=== PATIENT | female | born 1940 | race Caucasian/White ===

== ENCOUNTER 2019-04-07 12:48 | Inpatient (IN) | payer MEDICARE ==
--- NOTE | 2019-04-07 13:43 | CR ---
[id number] RAD/RAD Chest PA or AP 1V EXAM: RAD Chest PA or AP 1V INDICATION: CONFUSION. COMPARISON: None. DISCUSSION: Cardiomediastinal silhouette is normal in size and contour. COPD. No infiltrate, effusion, pneumothorax, or edema. IMPRESSION: Negative examination of the chest. Shaq Flores MD 04/07/19 8913 Thank you for allowing us to participate in the care of your patient.
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
[2019-04-07 14:13] LABS: CHLORIDE,CL 106 mmol/L (98-107); SODIUM,NA 148 mmol/L (136-145)
[2019-04-07 14:16] LABS: ANION GAP 16.5 mmol/L (10-20)
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
[2019-04-07] MEDS ORDERED: Lactated Ringers 1,000 ML IV SCH (14:45)
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
[2019-04-07] MEDS ORDERED: Albuterol 0.083% 2.5 MG/3 ML Neb Soln INH PRN (20:00)
[2019-04-07] MEDS: Lactated Ringers 1,000 ML IV SCH (23:43)
[2019-04-08] MEDS: Lactated Ringers 1,000 ML IV SCH ×3 (07:07→16:36)
[2019-04-08 08:28] LABS: ANION GAP 12.4 mmol/L (10-20)
[2019-04-08] MEDS ORDERED: Magnesium Sulfate/Water 2 GM in Premix Bag 1 BAG IV ONE (11:05)
[2019-04-08] MEDS ORDERED: Furosemide 20 MG/2 ML VIAL IV ONE (11:05)
[2019-04-08] MEDS ORDERED: Potassium Chloride Riders 20 MEQ in Premix Bag 1 BAG IV ONE (11:05)
--- NOTE | 2019-04-08 11:19 | PCM.PN ---
- General Info Date of Service: 04/08/19 Admission Dx/Problem (Free Text): Admission Diagnosis/Problem Admission Diagnosis/Problem Acute kidney injury Severe Dehydration Hypercalcemia Subjective Update: Patient lethargic but arousable. Patient states she is not having any pain. She denies any chest pain or SOB. Patient offers no specific concerns. She states she is very tired and just wants to sleep. Functional Status: Reports: Pain Controlled, Ambulating, Urinating. Denies: Tolerating Diet, New Symptoms Pain Score: 0 - Review of Systems General: Reports: Weakness. Denies: Fever, Chills Pulmonary: Denies: Shortness of Breath, Cough Cardiovascular: Denies: Chest Pain, Palpitations Gastrointestinal: Denies: Abdominal Pain, Nausea, Vomiting Skin: Reports: No Symptoms Neurological: Reports: Confusion - Patient Data Vitals - Most Recent: Last Vital Signs Temp 98.3 F 04/08/19 09:49 Pulse 71 04/08/19 09:49 Resp 16 04/08/19 09:49 BP 162/90 H 04/08/19 09:49 Pulse Ox 96 04/08/19 09:49 Weight - Most Recent: 117 lb I&O - Last 24 Hours: Intake & Output 04/07/19 04/08/19 04/08/19 22:59 06:59 14:59 Intake Total 80 1794 Output Total 650 Balance 80 1144 Lab Results Last 24 Hours: Laboratory Results - last 24 hr 04/07/19 04/07/19 04/07/19 Range/Units 13:31 13:31 13:31 WBC 6.5 (4.0-10.0) x10^3/uL RBC 3.88 L (4.00-5.50) x10^6/uL Hgb 12.5 (12.0-16.0) g/dL Hct 36.6 (33.0-47.0) % MCV 94.3 H (78.0-93.0) fL MCH 32.2 H (26.0-32.0) pg MCHC 34.2 (32.0-36.0) g/dL RDW Coeff of Darius 15.3 H (10.0-15.0) % Plt Count 130 (130-400) x10^3/uL Neut % (Auto) 75.8 (50.0-80.0) % Lymph % (Auto) 10.3 L (25.0-50.0) % [place] % (Auto) 13.5 H (2.0-11.0) % Eos % (Auto) 0.2 (0.0-4.0) % Baso % (Auto) 0.2 (0.2-1.2) % PT 13.4 H (10.0-12.8) SEC INR 1.2 L (2.0-3.5) Sodium 148 H (136-145) mmol/L Potassium 3.5 (3.5-5.1) mmol/L Chloride 106 (98-107) mmol/L Carbon Dioxide 29 (21-32) mmol/L Anion Gap 16.5 (10-20) mmol/L BUN 58 H D (7-18) mg/dL Creatinine 3.1 H* D (0.55-1.02) mg/dL Est Cr Clr Drug Dosing TNP Estimated GFR (MDRD) 14 Glucose 118 H (74-106) mg/dL Lactic Acid (0.4-2.0) mmol/L Calcium 16.2 H* D (8.5-10.1) mg/dL Corrected Calcium 16.92 H* D (8.5-10.1) mg/dL Magnesium 1.5 L (1.8-2.4) mg/dL Total Bilirubin 1.1 H (0.2-1.0) mg/dL AST 37 (15-37) U/L ALT 19 (14-59) U/L Alkaline Phosphatase 58 (46-116) U/L Troponin I (<=0.056) ng/mL C-Reactive Protein 4.0 H (<=0.9) mg/dL Total Protein 7.3 (6.4-8.2) g/dL Albumin 3.1 L (3.4-5.0) g/dL Globulin 4.2 Albumin/Globulin Ratio 0.74 TSH, Ultra Sensitive 2.292 (0.358-3.74) uIU/mL Urine Color (YELLOW) Urine Appearance (CLEAR) Urine pH (5.0-8.0) Ur Specific [place] Urine Protein (NEGATIVE) mg/dL Urine Glucose (UA) (NEGATIVE) mg/dL Urine Ketones (NEGATIVE) mg/dL Urine Occult Blood (NEGATIVE) Urine Nitrite (NEGATIVE) Urine Bilirubin (NEGATIVE) Urine Urobilinogen (0.2) EU/dL Ur Leukocyte Esterase (NEGATIVE) Urine RBC (NOT SEEN) /HPF Urine WBC (NOT SEEN) /HPF Ur Squamous Epith Cells (NEGATIVE) /HPF Ur Transition Epith Cell (NEGATIVE) /HPF Ur Renal Epithelial Cell (NEGATIVE) /HPF Urine Bacteria (NEGATIVE) /HPF Hyaline Casts (NEGATIVE) /HPF Urine Mucus (NEGATIVE) /LPF 04/07/19 04/07/19 04/07/19 Range/Units 13:31 13:31 14:20 WBC (4.0-10.0) x10^3/uL RBC (4.00-5.50) x10^6/uL Hgb (12.0-16.0) g/dL Hct (33.0-47.0) % MCV (78.0-93.0) fL MCH (26.0-32.0) pg MCHC (32.0-36.0) g/dL RDW Coeff of Darius (10.0-15.0) % Plt Count (130-400) x10^3/uL Neut % (Auto) (50.0-80.0) % Lymph % (Auto) (25.0-50.0) % [place] % (Auto) (2.0-11.0) % Eos % (Auto) (0.0-4.0) % Baso % (Auto) (0.2-1.2) % PT (10.0-12.8) SEC INR (2.0-3.5) Sodium (136-145) mmol/L Potassium (3.5-5.1) mmol/L Chloride (98-107) mmol/L Carbon Dioxide (21-32) mmol/L Anion Gap (10-20) mmol/L BUN (7-18) mg/dL Creatinine (0.55-1.02) mg/dL Est Cr Clr Drug Dosing Estimated GFR (MDRD) Glucose (74-106) mg/dL Lactic Acid 2.0 (0.4-2.0) mmol/L Calcium (8.5-10.1) mg/dL Corrected Calcium (8.5-10.1) mg/dL Magnesium (1.8-2.4) mg/dL Total Bilirubin (0.2-1.0) mg/dL AST (15-37) U/L ALT (14-59) U/L Alkaline Phosphatase (46-116) U/L Troponin I 0.076 H* (<=0.056) ng/mL C-Reactive Protein (<=0.9) mg/dL Total Protein (6.4-8.2) g/dL Albumin (3.4-5.0) g/dL Globulin Albumin/Globulin Ratio TSH, Ultra Sensitive (0.358-3.74) uIU/mL Urine Color Yellow (YELLOW) Urine Appearance Slightly cloudy H (CLEAR) Urine pH 5.5 (5.0-8.0) Ur Specific [place] 1.025 Urine Protein Negative (NEGATIVE) mg/dL Urine Glucose (UA) Negative (NEGATIVE) mg/dL Urine Ketones Trace H (NEGATIVE) mg/dL Urine Occult Blood Trace-intact H (NEGATIVE) Urine Nitrite Negative (NEGATIVE) Urine Bilirubin Small H (NEGATIVE) Urine Urobilinogen 0.2 (0.2) EU/dL Ur Leukocyte Esterase Small H (NEGATIVE) Urine RBC 0-5 (NOT SEEN) /HPF Urine WBC 10-20 H (NOT SEEN) /HPF Ur Squamous Epith Cells Moderate H (NEGATIVE) /HPF Ur Transition Epith Cell Rare H (NEGATIVE) /HPF Ur Renal Epithelial Cell Few H (NEGATIVE) /HPF Urine Bacteria Few H (NEGATIVE) /HPF Hyaline Casts Few H (NEGATIVE) /HPF Urine Mucus Few H (NEGATIVE) /LPF 04/07/19 04/08/19 04/08/19 Range/Units 19:35 07:42 07:42 WBC 6.3 (4.0-10.0) x10^3/uL RBC 3.24 L (4.00-5.50) x10^6/uL Hgb 10.5 L D (12.0-16.0) g/dL Hct 30.8 L (33.0-47.0) % MCV 95.1 H (78.0-93.0) fL MCH 32.4 H (26.0-32.0) pg MCHC 34.1 (32.0-36.0) g/dL RDW Coeff of Darius 15.4 H (10.0-15.0) % Plt Count 104 L (130-400) x10^3/uL Neut % (Auto) 68.8 (50.0-80.0) % Lymph % (Auto) 12.9 L (25.0-50.0) % [place] % (Auto) 15.6 H (2.0-11.0) % Eos % (Auto) 2.4 (0.0-4.0) % Baso % (Auto) 0.3 (0.2-1.2) % PT (10.0-12.8) SEC INR (2.0-3.5) Sodium 146 H (136-145) mmol/L Potassium 3.4 L (3.5-5.1) mmol/L Chloride 107 (98-107) mmol/L Carbon Dioxide 30 (21-32) mmol/L Anion Gap 12.4 (10-20) mmol/L BUN 53 H (7-18) mg/dL Creatinine 2.9 H (0.55-1.02) mg/dL Est Cr Clr Drug Dosing 10.93 Estimated GFR (MDRD) 16 Glucose 121 H (74-106) mg/dL Lactic Acid (0.4-2.0) mmol/L Calcium 15.2 H* (8.5-10.1) mg/dL Corrected Calcium (8.5-10.1) mg/dL Magnesium (1.8-2.4) mg/dL Total Bilirubin (0.2-1.0) mg/dL AST (15-37) U/L ALT (14-59) U/L Alkaline Phosphatase (46-116) U/L Troponin I 0.080 H* (<=0.056) ng/mL C-Reactive Protein (<=0.9) mg/dL Total Protein (6.4-8.2) g/dL Albumin (3.4-5.0) g/dL Globulin Albumin/Globulin Ratio TSH, Ultra Sensitive (0.358-3.74) uIU/mL Urine Color (YELLOW) Urine Appearance (CLEAR) Urine pH (5.0-8.0) Ur Specific [place] Urine Protein (NEGATIVE) mg/dL Urine Glucose (UA) (NEGATIVE) mg/dL Urine Ketones (NEGATIVE) mg/dL Urine Occult Blood (NEGATIVE) Urine Nitrite (NEGATIVE) Urine Bilirubin (NEGATIVE) Urine Urobilinogen (0.2) EU/dL Ur Leukocyte Esterase (NEGATIVE) Urine RBC (NOT SEEN) /HPF Urine WBC (NOT SEEN) /HPF Ur Squamous Epith Cells (NEGATIVE) /HPF Ur Transition Epith Cell (NEGATIVE) /HPF Ur Renal Epithelial Cell (NEGATIVE) /HPF Urine Bacteria (NEGATIVE) /HPF Hyaline Casts (NEGATIVE) /HPF Urine Mucus (NEGATIVE) /LPF Med Orders - Current: Current Medications Albuterol (Proventil Neb Soln) 2.5 mg INH Q4H PRN PRN Reason: Shortness of Breath Lactated Ringer's (Ringers, Lactated) 1,000 mls @ 125 mls/hr IV ASDIRECTED [facility] Last Admin: 04/08/19 08:43 Dose: 125 mls/hr Magnesium Sulfate 2 gm/ Premix 50 mls @ 25 mls/hr IV ONETIME ONE Stop: 04/08/19 13:04 Potassium Chloride 20 meq/ (Premix) 50 mls @ 50 mls/hr IV ONETIME ONE Stop: 04/08/19 12:04 Loperamide HCl (Imodium) 2 mg PO DAILY PRN PRN Reason: Diarrhea Sodium Chloride (Saline Flush) 10 ml FLUSH ASDIRECTED PRN PRN Reason: Keep Vein Open Discontinued Medications Furosemide (Lasix) 20 mg IV ONETIME ONE Stop: 04/08/19 11:06 Lactated Ringer's (Ringers, Lactated) 1,000 mls @ 150 mls/hr IV ASDIRECTED [facility] Last Admin: 04/07/19 14:52 Dose: 150 mls/hr - Exam Quality Assessment: DVT Prophylaxis. No: Skin Breakdown General: Alert, Cooperative, No Acute Distress. No: Oriented Lungs: Clear to Auscultation, Normal Respiratory Effort Cardiovascular: Regular Rate, Regular Rhythm GI/Abdominal Exam: Normal Bowel Sounds, Soft, Non-Tender Peripheral Pulses: 2+: Radial (L), Radial (R) Skin: Warm, Dry, Intact Neurological: No New Focal Deficit Sepsis Event Note - Evaluation Sepsis Screening Result: No Definite Risk - Focused Exam Vital Signs: Vital Signs Temp Pulse Resp BP BP Pulse Ox 04/08/19 09:49 98.3 F 71 16 162/90 H 96 04/08/19 06:00 99.1 F 75 14 166/79 H 94 L 04/08/19 02:00 98.3 F 78 16 182/87 H 93 L Date Exam was Performed: 04/08/19 Time Exam was Performed: 11:09 - Problem List Review Problem List Initiated/Reviewed/Updated: Yes - My Orders Last 24 Hours: My Active Orders 04/08/19 11:05 Magnesium Sulfate/Water [Magnesium Sulfate in Water Premix] 2 gm Premix Bag 1 bag IV ONETIME Potassium Chloride Riders [KCL 20 MEQ in Water 50 ML] 20 meq Premix Bag 1 bag IV ONETIME 04/09/19 05:11 BASIC METABOLIC PANEL,BMP [CHEM] Routine CALCIUM, IONIZED, SERUM [REF] Routine CBC WITH AUTO DIFF [HEME] Routine MAGNESIUM [CHEM] Routine PHOSPHORUS [CHEM] Routine PTH, INTACT [REF] Routine - Assessment Assessment:: 1. Dehydration 2. SINAN 2/2 to above 3. Hypercalcemia 2/2 to #1 4. Elevated Troponin 5. H/O recent dental surgery 6. HTN 7. SOB 8. Depressed Mood - Plan Plan:: 79 yo female admitted with severe SNIAN #1 Dehydration- improving, Creat now at 2.9, cont with IVF #2 SINAN, improving #3 Hypercalcemia, continue with IVF; will try 20 mg of IV Lasix today and see if this helps; replace K and Mag today as well - LR @125 cc/hr. - Will monitor labs daily. #4 Elevated Troponin- 2/2 SINAN most likely - No cardiac symptoms. - No further intervention/transfer unless significantly changed from initial. Unclear whether she would even be on board with this. #5 H/o Dental surgery - Everything is healing well. - Will likely need to move dental appointment. #6 Hypertension - BP continues to be elevated, keep kidneys profused; ok for higher blood pressure at this point until Creat improves - Will hold home anti-hypertensive in light of SINAN. - If she does need something to control her BP, amlodipine would be a good option. #7 Shortness of breath - No acute symptoms. - Continue albuterol PRN. #8 Depressed mood - Await social work eval to determine further interventions Continue acute cares for now. Will see how the patient does with IVF, Lasix, and electrolyte replacement. Continue SCD's for DVT prophylaxis. DNR/DNI. Dr. Roxane Madsen will see patient tomorrow.
[2019-04-08] MEDS: Sodium Chloride 0.9% 10 ML Syringe FLUSH PRN (12:06)
[2019-04-09] MEDS: Lactated Ringers 1,000 ML IV SCH ×3 (00:35→16:29)
[2019-04-09 07:14] LABS: ANION GAP 10.6 mmol/L (10-20)
--- NOTE | 2019-04-09 08:38 | PCM.PN ---
- General Info Date of Service: 04/09/19 Subjective Update: 79 yo female hospital day #3 admitted with SINAN secondary to severe dehydration. She is alert this morning and denies concerns. She is wondering when she is going to get her stitches removed from in her mouth. She denies any pain, swelling, or other trouble but recalls that she was supposed to be having an appointment today to get these removed. No fever. She has been eating and drinking well since admission. She is voiding without issue but has not had any bowel movements since admission. - Review of Systems General: Reports: No Symptoms HEENT: Reports: No Symptoms Pulmonary: Reports: No Symptoms Cardiovascular: Reports: No Symptoms Gastrointestinal: Reports: No Symptoms Genitourinary: Reports: No Symptoms Musculoskeletal: Reports: No Symptoms Skin: Reports: No Symptoms Neurological: Reports: No Symptoms - Patient Data Vitals - Most Recent: Last Vital Signs Temp 36.3 C 04/09/19 04:34 Pulse 63 04/09/19 04:34 Resp 17 04/09/19 04:34 BP 181/87 H 04/09/19 04:34 Pulse Ox 95 04/09/19 04:34 Weight - Most Recent: 53.07 kg I&O - Last 24 Hours: Intake & Output 04/08/19 04/09/19 04/09/19 22:59 06:59 14:59 Intake Total 1720 150 Output Total 500 1200 Balance 1220 -1050 Lab Results Last 24 Hours: Laboratory Results - last 24 hr 04/09/19 04/09/19 Range/Units 06:44 06:44 WBC 6.1 (4.0-10.0) x10^3/uL RBC 3.16 L (4.00-5.50) x10^6/uL Hgb 10.3 L (12.0-16.0) g/dL Hct 30.1 L (33.0-47.0) % MCV 95.3 H (78.0-93.0) fL MCH 32.6 H (26.0-32.0) pg MCHC 34.2 (32.0-36.0) g/dL RDW Coeff of Darius 15.3 H (10.0-15.0) % Plt Count 95 L (130-400) x10^3/uL Neut % (Auto) 68.4 (50.0-80.0) % Lymph % (Auto) 14.2 L (25.0-50.0) % [place] % (Auto) 13.6 H (2.0-11.0) % Eos % (Auto) 3.3 (0.0-4.0) % Baso % (Auto) 0.5 (0.2-1.2) % Sodium 145 (136-145) mmol/L Potassium 3.6 (3.5-5.1) mmol/L Chloride 106 (98-107) mmol/L Carbon Dioxide 32 (21-32) mmol/L Anion Gap 10.6 (10-20) mmol/L BUN 50 H (7-18) mg/dL Creatinine 2.7 H (0.55-1.02) mg/dL Est Cr Clr Drug Dosing 11.74 mL/min Estimated GFR (MDRD) 17 Glucose 106 (74-106) mg/dL Calcium 14.6 H* (8.5-10.1) mg/dL Phosphorus 3.7 (2.6-4.7) mg/dL Magnesium 1.5 L (1.8-2.4) mg/dL Rashid Results Last 24 Hours: Microbiology 04/07/19 13:35 Aerobic Blood Culture - Preliminary Blood - Venous - Lab Draw NO GROWTH AFTER 1 DAY Anaerobic Blood Culture - Preliminary NO GROWTH AFTER 1 DAY 04/07/19 13:31 Aerobic Blood Culture - Preliminary Blood - Venous NO GROWTH AFTER 1 DAY Anaerobic Blood Culture - Preliminary NO GROWTH AFTER 1 DAY Med Orders - Current: Current Medications Albuterol (Proventil Neb Soln) 2.5 mg INH Q4H PRN PRN Reason: Shortness of Breath Amlodipine Besylate (Norvasc) 2.5 mg PO DAILY [facility] Lactated Ringer's (Ringers, Lactated) 1,000 mls @ 125 mls/hr IV ASDIRECTED [facility] Last Admin: 04/09/19 00:35 Dose: 125 mls/hr Loperamide HCl (Imodium) 2 mg PO DAILY PRN PRN Reason: Diarrhea Sodium Chloride (Saline Flush) 10 ml FLUSH ASDIRECTED PRN PRN Reason: Keep Vein Open Last Admin: 04/08/19 12:06 Dose: 10 ml Discontinued Medications Furosemide (Lasix) 20 mg IV ONETIME ONE Stop: 04/08/19 11:06 Last Admin: 04/08/19 12:04 Dose: 20 mg Lactated Ringer's (Ringers, Lactated) 1,000 mls @ 150 mls/hr IV ASDIRECTED [facility] Last Admin: 04/07/19 14:52 Dose: 150 mls/hr Magnesium Sulfate 2 gm/ Premix 50 mls @ 25 mls/hr IV ONETIME ONE Stop: 04/08/19 13:04 Last Admin: 04/08/19 12:33 Dose: 25 mls/hr Potassium Chloride 20 meq/ (Premix) 50 mls @ 25 mls/hr IV ONETIME ONE Stop: 04/08/19 13:04 Last Admin: 04/08/19 12:07 Dose: 25 mls/hr - Exam General: Alert, Cooperative, No Acute Distress HEENT: Mucous Membr. Moist/[place] Neck: Supple, Trachea Midline, No Thyromegaly. No: Lymphadenopathy Lungs: Clear to Auscultation, Normal Respiratory Effort Cardiovascular: Regular Rate, Regular Rhythm, No Murmurs GI/Abdominal Exam: Normal Bowel Sounds, Soft, Non-Tender, No Organomegaly, No Distention, No Mass Extremities: Non-Tender, No Pedal Edema, Normal Capillary Refill Peripheral Pulses: 2+: Radial (L), Radial (R) Skin: Warm, Dry, Intact Neurological: No New Focal Deficit Sepsis Event Note - Evaluation Sepsis Screening Result: No Definite Risk - Focused Exam Vital Signs: Vital Signs Temp Pulse Resp BP Pulse Ox 04/09/19 04:34 36.3 C 63 17 181/87 H 95 04/09/19 02:00 36.2 C 67 16 180/91 H 95 04/08/19 21:58 37.0 C 71 17 151/83 H 97 Date Exam was Performed: 04/09/19 Time Exam was Performed: 08:38 - Problem List & Annotations (1) Dehydration SNOMED Code(s): 87760012 Code(s): E86.0 - DEHYDRATION Status: Acute Current Visit: Yes (2) SINAN (acute kidney injury) SNOMED Code(s): 47476059, 89123632 Code(s): N17.9 - ACUTE KIDNEY FAILURE, UNSPECIFIED Status: Acute Current Visit: Yes (3) Hypercalcemia SNOMED Code(s): 41031347 Code(s): E83.52 - HYPERCALCEMIA Status: Acute Current Visit: Yes (4) Elevated troponin SNOMED Code(s): 840631668, 794009621, 034497633 Code(s): R79.89 - OTHER SPECIFIED ABNORMAL FINDINGS OF BLOOD CHEMISTRY Status: Acute Current Visit: Yes (5) History of dental surgery SNOMED Code(s): 493251655 Code(s): Z92.89 - PERSONAL HISTORY OF OTHER MEDICAL TREATMENT Status: Acute Current Visit: Yes (6) Hypertension SNOMED Code(s): 18450726 Code(s): I10 - ESSENTIAL (PRIMARY) HYPERTENSION Status: Chronic Current Visit: Yes Qualifiers: Hypertension type: essential hypertension Qualified Code(s): I10 - Essential (primary) hypertension (7) Shortness of breath SNOMED Code(s): 049876389 Code(s): R06.02 - SHORTNESS OF BREATH Status: Chronic Current Visit: Yes (8) Depression SNOMED Code(s): 50217507 Code(s): F32.9 - MAJOR DEPRESSIVE DISORDER, SINGLE EPISODE, UNSPECIFIED Status: Acute Current Visit: Yes Qualifiers: Depression Type: other depression Qualified Code(s): F32.89 - Other specified depressive episodes - Problem List Review Problem List Initiated/Reviewed/Updated: Yes - My Orders Last 24 Hours: My Active Orders 04/09/19 08:36 UA W/MICROSCOPIC [URIN] Routine 04/09/19 08:45 amLODIPine [Norvasc] 2.5 mg PO DAILY 04/10/19 05:11 BASIC METABOLIC PANEL,BMP [CHEM] Routine CBC WITH AUTO DIFF [HEME] Routine - Assessment Assessment:: 79 yo female hospital day #3 admitted with SINAN secondary to significant dehydration. Labs are steadily improving. Much more alert today and asking appropriate questions. BP's have been consistently elevated. - Plan Plan:: 79 yo female admitted with severe SINAN #1 Dehydration #2 SINAN #3 Hypercalcemia #4 Hypokalemia, resolved #5 Hypomagnesia - [employer] is steadily improving, albeit slowly. Calcium also improving. - She is tolerating the fluid load without any issues. Therefore, continue LR @ 125 cc/hr. - K normal today; therefore, no further replacement. Mag is unchanged compared to yesterday despite IV administration; will hold off on further repletion today and recheck tomorrow. - MM would be on the differential for her hypercalcemia and SINAN; however, will not test for this as patient would not want treatment and creatinine and calcium are improving with IV fluids. - Will monitor labs daily. #6 Elevated Troponin - No cardiac symptoms. - Repeat troponin was essentially stable. - This is presumed to be secondary to her renal issues. #7 H/o Dental surgery - Everything is healing well. - Will have daughter check on when the timing needs to be for the dental appointment. If it can wait until next week, that would be preferable as it is likely the patient will not be prepared for dismissal home before Saturday. #8 Hypertension - BP has been persistently elevated. - Therefore, will go ahead and add amlodipine today at a low dose of 2.5 mg. #9 Shortness of breath - No acute symptoms. - Continue albuterol PRN. #10 Depressed mood - Await social work eval to determine further interventions Patient will remain on acute today - anticipate she will be here another couple of nights - will have PT/OT evals to see if she would be a swing bed candidate prior to returning home. Will work on dental appointment as above. See plan under problems as listed above. Code status is DNR/DNI - discussed on admission. SCD's for VTE prophylaxis - renal function precludes lovenox and her platelets are downtrending making heparin a poor option.
[2019-04-09] MEDS: amLODIPine 2.5 MG Tab PO SCH (09:24)
[2019-04-10] MEDS: Lactated Ringers 1,000 ML IV SCH ×2 (00:29→18:17)
[2019-04-10 07:17] LABS: ANION GAP 10.3 mmol/L (10-20)
[2019-04-10] MEDS: amLODIPine 2.5 MG Tab PO SCH (08:02)
[2019-04-10] MEDS: Loperamide 2 MG Cap PO PRN (08:03)
--- NOTE | 2019-04-10 08:29 | PCM.PN ---
- General Info Date of Service: 04/10/19 Subjective Update: 79 yo female hospital day #4 admitted with SINAN and hypercalcemia related to severe dehydration. She denies any complaints today. She states she slept well. She denies any abdominal pain. She had multiple bowel movements yesterday and got a dose of imodium early this morning. She has been voiding well. She does state she is feeling slightly short of breath today. - Review of Systems General: Reports: No Symptoms HEENT: Reports: No Symptoms Pulmonary: Reports: Shortness of Breath Cardiovascular: Reports: No Symptoms Gastrointestinal: Reports: Diarrhea Genitourinary: Reports: No Symptoms Musculoskeletal: Reports: No Symptoms Skin: Reports: No Symptoms - Patient Data Vitals - Most Recent: Last Vital Signs Temp 36.4 C 04/10/19 05:16 Pulse 60 04/10/19 05:16 Resp 16 04/10/19 05:16 BP 151/75 H 04/10/19 08:02 Pulse Ox 90 L 04/10/19 05:16 Weight - Most Recent: 53.07 kg I&O - Last 24 Hours: Intake & Output 04/09/19 04/10/19 04/10/19 22:59 06:59 14:59 Intake Total 1774 1792 Output Total 1 Balance 1773 1792 Lab Results Last 24 Hours: Laboratory Results - last 24 hr 04/10/19 04/10/19 Range/Units 06:51 06:51 WBC 5.7 (4.0-10.0) x10^3/uL RBC 2.94 L (4.00-5.50) x10^6/uL Hgb 9.5 L (12.0-16.0) g/dL Hct 28.0 L (33.0-47.0) % MCV 95.2 H (78.0-93.0) fL MCH 32.3 H (26.0-32.0) pg MCHC 33.9 (32.0-36.0) g/dL RDW Coeff of Darius 15.0 (10.0-15.0) % Plt Count 82 L (130-400) x10^3/uL Neut % (Auto) 68.8 (50.0-80.0) % Lymph % (Auto) 14.5 L (25.0-50.0) % [place] % (Auto) 13.4 H (2.0-11.0) % Eos % (Auto) 3.0 (0.0-4.0) % Baso % (Auto) 0.3 (0.2-1.2) % Sodium 146 H (136-145) mmol/L Potassium 3.3 L (3.5-5.1) mmol/L Chloride 109 H (98-107) mmol/L Carbon Dioxide 30 (21-32) mmol/L Anion Gap 10.3 (10-20) mmol/L BUN 44 H (7-18) mg/dL Creatinine 2.6 H (0.55-1.02) mg/dL Est Cr Clr Drug Dosing 12.19 mL/min Estimated GFR (MDRD) 18 Glucose 107 H (74-106) mg/dL Calcium 14.0 H* (8.5-10.1) mg/dL Magnesium 1.3 L (1.8-2.4) mg/dL Rashid Results Last 24 Hours: Microbiology 04/07/19 13:35 Aerobic Blood Culture - Preliminary Blood - Venous - Lab Draw NO GROWTH AFTER 2 DAYS Anaerobic Blood Culture - Preliminary NO GROWTH AFTER 2 DAYS 04/07/19 13:31 Aerobic Blood Culture - Preliminary Blood - Venous NO GROWTH AFTER 2 DAYS Anaerobic Blood Culture - Preliminary NO GROWTH AFTER 2 DAYS Med Orders - Current: Current Medications Albuterol (Proventil Neb Soln) 2.5 mg INH Q4H PRN PRN Reason: Shortness of Breath Amlodipine Besylate (Norvasc) 2.5 mg PO DAILY [facility] Last Admin: 04/10/19 08:02 Dose: 2.5 mg Lactated Ringer's (Ringers, Lactated) 1,000 mls @ 125 mls/hr IV ASDIRECTED [facility] Last Admin: 04/10/19 00:29 Dose: 125 mls/hr Loperamide HCl (Imodium) 2 mg PO DAILY PRN PRN Reason: Diarrhea Last Admin: 04/10/19 08:03 Dose: 2 mg Sodium Chloride (Saline Flush) 10 ml FLUSH ASDIRECTED PRN PRN Reason: Keep Vein Open Last Admin: 04/08/19 12:06 Dose: 10 ml Discontinued Medications Furosemide (Lasix) 20 mg IV ONETIME ONE Stop: 04/08/19 11:06 Last Admin: 04/08/19 12:04 Dose: 20 mg Lactated Ringer's (Ringers, Lactated) 1,000 mls @ 150 mls/hr IV ASDIRECTED [facility]NIS Last Admin: 04/07/19 14:52 Dose: 150 mls/hr Magnesium Sulfate 2 gm/ Premix 50 mls @ 25 mls/hr IV ONETIME ONE Stop: 04/08/19 13:04 Last Admin: 04/08/19 12:33 Dose: 25 mls/hr Potassium Chloride 20 meq/ (Premix) 50 mls @ 25 mls/hr IV ONETIME ONE Stop: 04/08/19 13:04 Last Admin: 04/08/19 12:07 Dose: 25 mls/hr - Exam General: Alert, Cooperative, No Acute Distress HEENT: Mucous Membr. Moist/[place] Neck: Supple, Trachea Midline, No Thyromegaly. No: Lymphadenopathy Lungs: Normal Respiratory Effort, Crackles (in the lower lung angel bilaterally ). No: Rales, Rhonchi Cardiovascular: Regular Rate, Regular Rhythm, No Murmurs GI/Abdominal Exam: Normal Bowel Sounds, Soft, Non-Tender, No Organomegaly, No Distention, No Mass Extremities: Normal Inspection, Non-Tender, No Pedal Edema, Normal Capillary Refill Peripheral Pulses: 2+: Radial (L), Radial (R) Skin: Warm, Dry, Intact Sepsis Event Note - Evaluation Sepsis Screening Result: No Definite Risk - Focused Exam Vital Signs: Vital Signs Temp Pulse Resp BP BP Pulse Ox 04/10/19 08:02 151/75 H 04/10/19 05:16 36.4 C 60 16 151/75 H 90 L 04/10/19 01:50 37.0 C 80 17 146/89 H 95 04/09/19 22:00 36.6 C 78 16 130/84 95 Date Exam was Performed: 04/10/19 Time Exam was Performed: 09:17 - Problem List & Annotations (1) Dehydration SNOMED Code(s): 55198799 Code(s): E86.0 - DEHYDRATION Status: Acute Current Visit: Yes (2) SINAN (acute kidney injury) SNOMED Code(s): 46290189, 07007544 Code(s): N17.9 - ACUTE KIDNEY FAILURE, UNSPECIFIED Status: Acute Current Visit: Yes (3) Hypercalcemia SNOMED Code(s): 67302246 Code(s): E83.52 - HYPERCALCEMIA Status: Acute Current Visit: Yes (4) Hypokalemia SNOMED Code(s): 68501096 Code(s): E87.6 - HYPOKALEMIA Status: Acute Current Visit: Yes (5) Hypomagnesemia SNOMED Code(s): 948654290 Code(s): E83.42 - HYPOMAGNESEMIA Status: Acute Current Visit: Yes (6) Elevated troponin SNOMED Code(s): 789794922, 166587750, 327351072 Code(s): R79.89 - OTHER SPECIFIED ABNORMAL FINDINGS OF BLOOD CHEMISTRY Status: Acute Current Visit: Yes (7) History of dental surgery SNOMED Code(s): 701528270 Code(s): Z92.89 - PERSONAL HISTORY OF OTHER MEDICAL TREATMENT Status: Acute Current Visit: Yes (8) Hypertension SNOMED Code(s): 45265946 Code(s): I10 - ESSENTIAL (PRIMARY) HYPERTENSION Status: Chronic Current Visit: Yes Qualifiers: Hypertension type: essential hypertension Qualified Code(s): I10 - Essential (primary) hypertension (9) Shortness of breath SNOMED Code(s): 892583228 Code(s): R06.02 - SHORTNESS OF BREATH Status: Chronic Current Visit: Yes (10) Depression SNOMED Code(s): 91279564 Code(s): F32.9 - MAJOR DEPRESSIVE DISORDER, SINGLE EPISODE, UNSPECIFIED Status: Acute Current Visit: Yes Qualifiers: Depression Type: other depression Qualified Code(s): F32.89 - Other specified depressive episodes (11) Anemia SNOMED Code(s): 345792586 Code(s): D64.9 - ANEMIA, UNSPECIFIED Status: Acute Current Visit: Yes Qualifiers: Anemia type: unspecified type Qualified Code(s): D64.9 - Anemia, unspecified (12) Thrombocytopenia SNOMED Code(s): 557821882 Code(s): D69.6 - THROMBOCYTOPENIA, UNSPECIFIED Status: Acute Current Visit: Yes - Problem List Review Problem List Initiated/Reviewed/Updated: Yes - My Orders Last 24 Hours: My Active Orders 04/09/19 08:36 UA W/MICROSCOPIC [URIN] Routine 04/09/19 08:38 OT Evaluation and Treatment [CONS] Routine PT Evaluation and Treatment [CONS] Routine 04/09/19 08:45 amLODIPine [Norvasc] 2.5 mg PO DAILY - Assessment Assessment:: 79 yo female hospital day #4 admitted with SINAN secondary to significant dehydration. Labs are steadily improving. Much more alert today and asking appropriate questions. BP's better after starting low dose amlodipine yesterday. 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 Rest of her labs remain stable. BUN:[employer] ratio now 16, meaning this is now likely residual effect of her dehydration. - She has some shortness of breath today; therefore, will give her a break from IV fluids and encourage her to drink liquids today. - Will do 1 more liter overnight tonight. - Suspect now that there is more going on than just the dehydration given her persistent hypercalcemia and hematologic abnormalities as noted below. - Therefore, if her creatinine is improved tomorrow, calcium is under 14, and the rest of her electrolytes are stable, she may be able to transition to swing bed. - Will monitor labs daily. #6 Elevated Troponin - No cardiac symptoms. - Repeat troponin was essentially stable. - This is presumed to be secondary to her renal issues. #7 H/o Dental surgery - Everything is healing well. - Suture removal appointment now scheduled for 04/14. #8 Hypertension - BP much better after amlodipine added yesterday. - Therefore, will continue with low dose of 2.5 mg. #9 Shortness of breath - No acute symptoms apart from those related to fluids. - Continue albuterol PRN. #10 Depressed mood - Await social work eval to determine further interventions. #11 Anemia #12 Thrombocytopenia - As noted yesterday, suspect she has MM. - However, she is not interested in invasive evaluations nor any treatments; therefore, testing is not going to be performed at this time. Patient will remain on acute today - planning for transition to swing bed when medically stable, which could be as soon as tomorrow. Dental appointment rescheduled to 04/14. Code status is DNR/DNI - discussed on admission. SCD's for VTE prophylaxis - renal function precludes lovenox and her platelets are downtrending making heparin a poor option.
[2019-04-11] MEDS: Lactated Ringers 1,000 ML IV SCH (04:19)
[2019-04-11] MEDS: Sodium Chloride 0.9% 10 ML Syringe FLUSH PRN (06:46)
[2019-04-11 09:08] LABS: ANION GAP 11.4 mmol/L (10-20)
[2019-04-11] MEDS: amLODIPine 2.5 MG Tab PO SCH (10:27)
[2019-04-11] MEDS: Loperamide 2 MG Cap PO PRN (10:28)
--- NOTE | 2019-04-11 13:30 | PCM.DCSUM1 ---
Discharge Summary - Hospital Course Free Text/Narrative:: 79 yo female admitted with severe SINAN #1 Dehydration- resolved #2 SINAN - resolving #3 Hypercalcemia - resolving #4 Hypokalemia - resolving #5 Hypomagnesia - resolving - [employer] Project [employer] and Calcium continue to improve. Rest of her labs remain stable. BUN:[employer] Project [employer] ratio now 16, meaning this is now likely residual effect of her dehydration. - Therefore, with her creatinine improving- calcium is under 14, and the rest of her electrolytes are stable, she will transition to swing bed today. #6 Elevated Troponin - No cardiac symptoms. - Repeat troponin was essentially stable. - This is presumed to be secondary to her renal issues. #7 H/o Dental surgery - Everything is healing well. - Suture removal appointment now scheduled for 04/14. #8 Hypertension - BP much better after amlodipine added and is well regulated . - Therefore, will continue with low dose of 2.5 mg. #9 Shortness of breath - No acute symptoms apart from those related to fluids. - Continue albuterol PRN. - Resolved: patient has had not further complaints or concerns #10 Depressed mood - Await social work eval to determine further interventions. #11 Anemia #12 Thrombocytopenia - As noted her PCP suspect she has MM. - However, she is not interested in invasive evaluations nor any treatments; therefore, testing is not going to be performed at this time. Patient will transition to swing bed. Dental appointment rescheduled to 04/14. Code status is DNR/DNI. Patient is aware and agreeable to the plan of care. Nursing staff is updated and all questions and concerns prior to transitioning patient to swing be. HPI Initial Comments: Patient was admitted #5 days ago with SINAN secondary to significant dehydration. Labs are steadily improving but in still in need of strengthening. During her hospitalization patient received IV lasix, IV fluids, and medical monitoring/strengthening. her labs continue to progress and show slight improvement everyday. She does require frequent reminders to complete ADL's including eating and drinking fluids Patient will be discharged and re-admitted to swing bed for further management and care. Diagnosis: Stroke: No - Discharge Data Discharge Date: 04/11/19 Discharge Disposition: DC/Tfer W/I Hosp To Swing 61 Condition: Good - Referral to Home Health Primary Care Physician: PCP Unknown - Discharge Diagnosis/Problem(s) (1) SINAN (acute kidney injury) SNOMED Code(s): 43495162, 91703137 ICD Code: N17.9 - ACUTE KIDNEY FAILURE, UNSPECIFIED Status: Acute Current Visit: Yes (2) Anemia SNOMED Code(s): 291028987 ICD Code: D64.9 - ANEMIA, UNSPECIFIED Status: Acute Current Visit: Yes Qualifiers: Anemia type: unspecified type Qualified Code(s): D64.9 - Anemia, unspecified (3) Dehydration SNOMED Code(s): 43739451 ICD Code: E86.0 - DEHYDRATION Status: Acute Current Visit: Yes - Patient Summary/Data Consults: Consultations 04/09/19 08:38 OT Evaluation and Treatment [CONS] Routine PT Evaluation and Treatment [CONS] Routine 04/07/19 15:30 Consult to Case Management/Industrial Maintenance Repairer Helper [CONS] Routine - Discharge Plan *PRESCRIPTION DRUG MONITORING PROGRAM REVIEWED*: Not Applicable *COPY OF PRESCRIPTION DRUG MONITORING REPORT IN PATIENT GANESH: Not Applicable Home Medications: Home Meds Albuterol Sulfate [Albuterol Sulfate Hfa] 2 puff IH Q4H PRN 04/07/19 [History] Lisinopril/Hydrochlorothiazide [Lisinopril-HCTZ 10-12.5 MG] 1 tab PO DAILY 04/07 [History] Loperamide HCl [Imodium A-D] 2 mg PO DAILY PRN 04/07/19 [History] Oxygen Therapy Mode: Room Air Forms: ED Department Discharge Referrals: PCP,Unknown [Primary Care Provider] - - Discharge Summary/Plan Comment DC Time >30 min.: Yes (transition to swing bed status ) - General Info Date of Service: 04/11/19 Admission Dx/Problem (Free Text: Admission Diagnosis/Problem Admission Diagnosis/Problem Acute kidney injury Severe Dehydration Hypercalcemia Subjective Update: 79 yo female hospital day #5 admitted with SINAN and hypercalcemia related to severe dehydration. She denies any complaints today. She states she slept well. She denies any abdominal pain. She had a bowel movement already today. She has been voiding well. She states she does feel better today than yesterday. Functional Status: Reports: Pain Controlled, Tolerating Diet, Urinating - Review of Systems General: Reports: No Symptoms HEENT: Reports: No Symptoms Pulmonary: Reports: No Symptoms Cardiovascular: Reports: No Symptoms Gastrointestinal: Reports: No Symptoms Genitourinary: Reports: No Symptoms Musculoskeletal: Reports: No Symptoms Skin: Reports: No Symptoms Neurological: Reports: No Symptoms Psychiatric: Reports: No Symptoms - Patient Data Vitals - Most Recent: Last Vital Signs Temp 36.6 C 04/11/19 10:00 Pulse 67 04/11/19 10:00 Resp 16 04/11/19 10:00 BP 112/64 04/11/19 10:27 Pulse Ox 94 L 04/11/19 10:00 Weight - Most Recent: 53.07 kg I&O - Last 24 hours: Intake & Output 04/10/19 04/11/19 04/11/19 22:59 06:59 14:59 Intake Total 480 1340 Output Total 600 Balance 480 740 Lab Results - Last 24 hrs: Laboratory Results - last 24 hr 04/09/19 04/11/19 04/11/19 Range/Units 06:44 08:42 08:42 WBC 5.6 (4.0-10.0) x10^3/uL RBC 3.01 L (4.00-5.50) x10^6/uL Hgb 9.6 L (12.0-16.0) g/dL Hct 28.9 L (33.0-47.0) % MCV 96.0 H (78.0-93.0) fL MCH 31.9 (26.0-32.0) pg MCHC 33.2 (32.0-36.0) g/dL RDW Coeff of Darius 16.0 H (10.0-15.0) % Plt Count 80 L (130-400) x10^3/uL Neut % (Auto) 68.7 (50.0-80.0) % Lymph % (Auto) 14.3 L (25.0-50.0) % [place] % (Auto) 12.9 H (2.0-11.0) % Eos % (Auto) 3.6 (0.0-4.0) % Baso % (Auto) 0.5 (0.2-1.2) % Sodium 144 (136-145) mmol/L Potassium 3.4 L (3.5-5.1) mmol/L Chloride 106 (98-107) mmol/L Carbon Dioxide 30 (21-32) mmol/L Anion Gap 11.4 (10-20) mmol/L BUN 41 H (7-18) mg/dL Creatinine 2.6 H (0.55-1.02) mg/dL Est Cr Clr Drug Dosing 12.19 mL/min Estimated GFR (MDRD) 18 Glucose 101 (74-106) mg/dL Calcium 13.9 H* (8.5-10.1) mg/dL PTH Intact 14 L (15-65) pg/mL ESE Results - Last 24 hrs: Microbiology 04/10/19 10:30 Urine Culture - Preliminary Urine, Clean Catch MIXED JESSICA DAY 1 04/07/19 13:35 Aerobic Blood Culture - Preliminary Blood - Venous - Lab Draw NO GROWTH AFTER 3 DAYS Anaerobic Blood Culture - Preliminary NO GROWTH AFTER 3 DAYS 04/07/19 13:31 Aerobic Blood Culture - Preliminary Blood - Venous NO GROWTH AFTER 3 DAYS Anaerobic Blood Culture - Preliminary NO GROWTH AFTER 3 DAYS Med Orders - Current: Current Medications Albuterol (Proventil Neb Soln) 2.5 mg INH Q4H PRN PRN Reason: Shortness of Breath Amlodipine Besylate (Norvasc) 2.5 mg PO DAILY [facility] Last Admin: 04/11/19 10:27 Dose: 2.5 mg Loperamide HCl (Imodium) 2 mg PO DAILY PRN PRN Reason: Diarrhea Last Admin: 04/11/19 10:28 Dose: 2 mg Sodium Chloride (Saline Flush) 10 ml FLUSH ASDIRECTED PRN PRN Reason: Keep Vein Open Last Admin: 04/11/19 06:46 Dose: 10 ml Discontinued Medications Furosemide (Lasix) 20 mg IV ONETIME ONE Stop: 04/08/19 11:06 Last Admin: 04/08/19 12:04 Dose: 20 mg Lactated Ringer's (Ringers, Lactated) 1,000 mls @ 150 mls/hr IV ASDIRECTED [facility] Last Admin: 04/07/19 14:52 Dose: 150 mls/hr Lactated Ringer's (Ringers, Lactated) 1,000 mls @ 125 mls/hr IV ASDIRECTED [facility] Last Admin: 04/10/19 00:29 Dose: 125 mls/hr Magnesium Sulfate 2 gm/ Premix 50 mls @ 25 mls/hr IV ONETIME ONE Stop: 04/08/19 13:04 Last Admin: 04/08/19 12:33 Dose: 25 mls/hr Potassium Chloride 20 meq/ (Premix) 50 mls @ 25 mls/hr IV ONETIME ONE Stop: 04/08/19 13:04 Last Admin: 04/08/19 12:07 Dose: 25 mls/hr Lactated Ringer's (Ringers, Lactated) 1,000 mls @ 100 mls/hr IV ASDIRECTED [facility] Stop: 04/11/19 06:00 Last Admin: 04/11/19 04:19 Dose: 100 mls/hr - Exam General: Reports: Alert, Oriented HEENT: Reports: Pupils Equal, Pupils Reactive, EOMI, Mucous Membr. Moist/[place] Neck: Reports: Supple Lungs: Reports: Clear to Auscultation, Normal Respiratory Effort Cardiovascular: Reports: Regular Rate, Regular Rhythm GI/Abdominal Exam: Normal Bowel Sounds, Soft, Non-Tender, No Organomegaly, No Distention, No Abnormal Bruit, No Mass, Pelvis Stable Back Exam: Reports: Normal Inspection, Full Range of Motion Extremities: Normal Inspection, Normal Range of Motion, Non-Tender, No Pedal Edema, Normal Capillary Refill Skin: Reports: Warm, Dry, Intact Wound/Incisions: Reports: Healing Well Neurological: Reports: No New Focal Deficit Psy/Mental Status: Reports: Alert, Normal Affect, Normal Mood
== END 2019-04-11 13:37 | disposition swing bed (61) | DRG 641 ==
LOC: VM.ED 12:48 → VM.MS 14:48 → UNDODISIN 04-11 13:37
PROVIDERS: ADMIT Family Medicine; ATTEND Family Medicine
DX: E86.0 Dehydration (principal); N17.9 Acute kidney failure, unspecified; E83.52 Hypercalcemia; Z91.048 Other nonmedicinal substance allergy status; E87.6 Hypokalemia; E83.42 Hypomagnesemia; Z66 Do not resuscitate; I10 Essential (primary) hypertension; F32.9 Major depressive disorder, single episode, unspecified; D64.9 Anemia, unspecified; D69.6 Thrombocytopenia, unspecified; J44.9 Chronic obstructive pulmonary disease, unspecified; R79.89 Other specified abnormal findings of blood chemistry; Z98.818 Other dental procedure status; Z91.09 Other allergy status, other than to drugs and biological substances; Z79.899 Other long term (current) drug therapy; Z87.891 Personal history of nicotine dependence
CPT/HCPCS: 36415; 70450; 71045; 80048; 80053; 81001; 82330; 83605; 83735; 83970; 84100; 84443; 84484; 85025; 85610; 86140; 87040; 87086; 93005; 97161-GP; 97165-GO; 99284-GF; 99285-25; A9270-GY; J1940; J3475; J3480; J7120

== ENCOUNTER 2019-04-11 13:05 | Inpatient (IN) | payer MEDICARE ==
[2019-04-11] MEDS ORDERED: Non-Formulary Medication 1 Each (Loperamide Hcl [Imodium A-D] 2 MG) PO PRN (14:01)
[2019-04-11] MEDS ORDERED: Albuterol HFA 18 Gm Inhaler INH PRN (14:01)
--- NOTE | 2019-04-11 14:08 | PCM.HP.2 ---
H&P History of Present Illness - General Date of Service: 04/11/19 Admit Problem/Dx: Admission Diagnosis/Problem Admission Diagnosis/Problem Acute kidney injury Source of Information: Patient History Limitations: Reports: No Limitations - History of Present Illness Initial Comments - Free Text/Narative: Patient was discharged from acute-care status to swing bed. Patient is medically cleared and has been stable. Patient will be admitted to swing bed for further strengthening/rehabilitation again. Onset of Symptoms: Reports: Gradual - Related Data Allergies/Adverse Reactions: Allergies Allergy/AdvReac Type Severity Reaction Status Date / Time cat dander Allergy Mild Shortness Verified 04/11/19 13:41 of Breath Home Medications: Home Meds Albuterol Sulfate [Albuterol Sulfate Hfa] 2 puff IH Q4H PRN 04/07/19 [History] Lisinopril/Hydrochlorothiazide [Lisinopril-HCTZ 10-12.5 MG] 1 tab PO DAILY 04/07 [History] Loperamide HCl [Imodium A-D] 2 mg PO DAILY PRN 04/07/19 [History] Past Medical History - Past Health History Medical/Surgical History: Denies Medical/Surgical History Cardiovascular History: Reports: Hypertension Respiratory History: Reports: COPD Social & Family History - Family History Psychiatric: Reports: Depression (son by suicide) - Caffeine Use Caffeine Use: Reports: Coffee, Soda - Living Situation & Occupation Living situation: Reports: , Alone Occupation: Retired H&P Review of Systems - Review of Systems: Review Of Systems: See Below General: Reports: No Symptoms HEENT: Reports: No Symptoms Pulmonary: Reports: No Symptoms Cardiovascular: Reports: No Symptoms Gastrointestinal: Reports: No Symptoms Genitourinary: Reports: No Symptoms Musculoskeletal: Reports: No Symptoms Skin: Reports: No Symptoms Psychiatric: Reports: No Symptoms Neurological: Reports: No Symptoms Exam - Exam Exam: See Below - Vital Signs Weight: 53.07 kg - Exam General: Alert, Oriented HEENT: EOMI, Pupils Equal Neck: Supple, Trachea Midline Lungs: Clear to Auscultation, Normal Respiratory Effort Cardiovascular: Regular Rate, Regular Rhythm GI/Abdominal Exam: Normal Bowel Sounds, Soft, Non-Tender, No Mass Back Exam: Normal Inspection, Full Range of Motion Extremities: Normal Inspection, Normal Range of Motion Peripheral Pulses: 4+: Radial (L), Radial (R), Dorsalis Pedis (L), Dorsalis Pedis (R) Skin: Warm, Dry Neuro Extensive - Mental Status: Alert, Oriented x3, Normal Cognition Neuro Extensive - Motor, Sensory, Reflexes: CN II-XII Intact Psychiatric: Alert, Normal Affect, Labile Mood Sepsis Event Note - Evaluation Sepsis Screening Result: No Definite Risk - Problem List (1) SINAN (acute kidney injury) SNOMED Code(s): 45405757, 10304522 ICD Code: N17.9 - ACUTE KIDNEY FAILURE, UNSPECIFIED Status: Acute Current Visit: No (2) Anemia SNOMED Code(s): 521062404 ICD Code: D64.9 - ANEMIA, UNSPECIFIED Status: Acute Current Visit: No Qualifiers: (3) Hypercalcemia SNOMED Code(s): 41591401 ICD Code: E83.52 - HYPERCALCEMIA Status: Acute Current Visit: No Problem List Initiated/Reviewed/Updated: Yes Orders Last 24hrs: Active Orders 24 hr Category Date Time Status Admission Status [Patient Status] [ADT] Routine ADT 04/11/19 13:20 Active Ambulate [RC] PER UNIT ROUTINE Care 04/11/19 13:59 Ordered Ambulate [RC] PER UNIT ROUTINE Care 04/11/19 14:00 Ordered Antiembolic Devices [RC] PER UNIT ROUTINE Care 04/11/19 14:01 Ordered Height and Weight [RC] PER UNIT ROUTINE Care 04/11/19 13:59 Ordered Intake and Output [RC] QSHIFT Care 04/11/19 13:59 Ordered Oxygen Therapy [RC] PRN Care 04/11/19 13:59 Ordered VTE/DVT Education [RC] PER UNIT ROUTINE Care 04/11/19 13:59 Ordered Vital Signs [RC] PER UNIT ROUTINE Care 04/11/19 13:59 Ordered Consult to Case Management/Telecommunications Operator [CONS] Cons 04/11/19 13:54 Active Routine OT Evaluation and Treatment [CONS] Routine Cons 04/11/19 13:54 Active PT Evaluation and Treatment [CONS] Routine Cons 04/11/19 13:53 Active Regular Diet [DIET] Diet 04/11/19 Dinner Ordered Albuterol [Ventolin HFA] Med 04/11/19 14:01 Ordered 2 puff INH Q4H PRN Lisinopril/Hydrochlorothiazide Med 04/12/19 08:00 Ordered 1 tab PO DAILY Loperamide HCl [Imodium A-D] Med 04/11/19 14:01 Ordered 2 mg PO DAILY PRN Antiembolic Hose [OM.PC] Per Unit Routine Oth 04/11/19 14:00 Ordered Sequential Compression Device [OM.PC] Per Unit Routine Oth 04/11/19 14:00 Ordered Code Status [Resuscitation Status] Routine Resus Stat 04/11/19 13:54 Ordered Assessment/Plan Comment:: 1. Patient is being admitted to swing bed for further strengthening and rehabilitation. 2. Orders completed 3. Patient updated regarding plan of care 4. Referrals and consultations completed 5. All questions and concerns were addressed - Mortality Measure Prognosis:: Good
[2019-04-12] MEDS ORDERED: Lisinopril 10 MG Tab PO SCH (08:00)
[2019-04-12] MEDS ORDERED: Hydrochlorothiazide 12.5 MG Cap PO SCH (08:00)
[2019-04-12] MEDS: Loperamide 2 MG Cap PO PRN (08:58)
[2019-04-13 06:53] LABS: ANION GAP 11.4 mmol/L (10-20)
[2019-04-13] MEDS ORDERED: Sodium Chloride 0.9% 10 ML Syringe FLUSH PRN (07:36)
[2019-04-13] MEDS: amLODIPine 2.5 MG Tab PO SCH (08:03)
[2019-04-13] MEDS ORDERED: Sodium Chloride 0.9% 1,000 ML IV ONE (08:30)
--- NOTE | 2019-04-13 12:16 | PCM.SN ---
- Free Text/Narrative Note: Spoke with the patient and her daughter regarding the test results from today. Creatinine and calcium are back up despite only being off IV fluids for 2 days. Discussed that the initial hope was that her lab abnormalities were secondary to significant dehydration. She has been adequately rehydrated without significant change in her labs. Therefore, now discussed with them the presumption that there is something more going on here. Reviewed the possibility of MM vs multiple other possibilities. Discussed that there are things we can do to bring the calcium down but that this will rebound back to current levels unless the underlying problem is addressed. Reviewed the option to transfer to [place] to complete the evaluation as well as have consultations by specialists to come up with the appropriate treatment plan. As the patient had voiced on admission that she really did not want to be admitted in the first place or have any other medical treatments besides the IV fluids, the alternative of doing nothing was discussed. Reviewed that her calcium would just increase back to where it was on admission, resulting in weakness, confusion, and potentially arrhythmias, kidney stones, etc. Reviewed that this will likely cause her . She voices understanding of the information and declines to do any further testing or interventions. She prefers to be "left alone." Her daughter notes that this is the response she expected having known her mother. Note concerns for depression and hypercalcemia clouding the patient' s ability to make a sound decision. Her daughter agrees with the patient's decision, again noting that this is likely what her mother would want even in a clear state of mind. Did discuss with the patient that returning home is not likely to go well given expectation for progressive weakness. Case management updated and will discuss with the patient and her daughter plans for disposition. She will stay on swing bed working with PT and OT as long as she continues to progress and until a disposition plan is in place.
[2019-04-14] MEDS: amLODIPine 2.5 MG Tab PO SCH (08:41)
--- NOTE | 2019-04-15 07:58 | PCM.DCSUM1 ---
Discharge Summary - Hospital Course Brief History: Ms. Valdivia is an 79 yo female who was admitted to swing bed for strengthening after an acute stay for acute kidney injury and severe hypercalcemia. - Discharge Data Discharge Date: 04/15/19 Discharge Disposition: Home, Self-Care 01 Condition: Good - Referral to Home Health Primary Care Physician: Roxane Madsen MD - Discharge Diagnosis/Problem(s) (1) Hypercalcemia SNOMED Code(s): 61974423 ICD Code: E83.52 - HYPERCALCEMIA Status: Acute Current Visit: No (2) SINAN (acute kidney injury) SNOMED Code(s): 89887411, 86805943 ICD Code: N17.9 - ACUTE KIDNEY FAILURE, UNSPECIFIED Status: Acute Current Visit: No (3) Anemia SNOMED Code(s): 321644843 ICD Code: D64.9 - ANEMIA, UNSPECIFIED Status: Acute Current Visit: No Qualifiers: Anemia type: unspecified type (4) Depression SNOMED Code(s): 13903745 ICD Code: F32.9 - MAJOR DEPRESSIVE DISORDER, SINGLE EPISODE, UNSPECIFIED Status: Chronic Current Visit: No Qualifiers: Depression Type: other depression Qualified Code(s): F32.89 - Other specified depressive episodes (5) Thrombocytopenia SNOMED Code(s): 205798225 ICD Code: D69.6 - THROMBOCYTOPENIA, UNSPECIFIED Status: Acute Current Visit: No (6) Hypertension SNOMED Code(s): 02429004 ICD Code: I10 - ESSENTIAL (PRIMARY) HYPERTENSION Status: Chronic Current Visit: No Qualifiers: Hypertension type: essential hypertension Qualified Code(s): I10 - Essential (primary) hypertension - Patient Summary/Data Operative Procedure(s) Performed: none Complications: none Consults: Consultations 04/11/19 13:53 PT Evaluation and Treatment [CONS] Routine 04/11/19 13:54 Consult to Case Management/Assurance Manager [CONS] Routine OT Evaluation and Treatment [CONS] Routine Labs Pending at D/C: none Recommended Follow-up Testing/Procedures: none Planned Operative Procedure(s) after DC: none Hospital Course: The patient was admitted to swing bed and did work with PT and OT. Her labs were repeated 2 days after transition to swing bed and her creatinine and calcium were already trending up. Therefore, discussions were held with the patient and her daughter on whether they wanted to pursue additional evaluations and treatments for the underlying problem or whether she wanted to be dismissed home without further cares either with or without hospice. They opted for the latter option and are planning on hospice but have not decided which agency to go with. The patient will be dismissed home today and will live independently but her daughter lives in the same town and will provide support. No further labs or follow-up will be required. - Patient Instructions Diet: Usual Diet as Tolerated Activity: As Tolerated - Discharge Plan *PRESCRIPTION DRUG MONITORING PROGRAM REVIEWED*: Not Applicable *COPY OF PRESCRIPTION DRUG MONITORING REPORT IN PATIENT GANESH: Not Applicable Prescriptions/Med Rec: amLODIPine [Norvasc] 2.5 mg PO DAILY #90 tablet Home Medications: Home Meds Albuterol Sulfate [Albuterol Sulfate Hfa] 2 puff IH Q4H PRN 04/07/19 [History] Loperamide HCl [Imodium A-D] 2 mg PO DAILY PRN 04/07/19 [History] amLODIPine [Norvasc] 2.5 mg PO DAILY #90 tablet 04/15/19 [Rx] - Discharge Summary/Plan Comment DC Time >30 min.: No - General Info Date of Service: 04/15/19 Subjective Update: Patient states she is feeling well this morning and she denies any complaints. She is happy that she will be discharged home today. - Review of Systems General: Reports: No Symptoms HEENT: Reports: No Symptoms Pulmonary: Reports: No Symptoms Cardiovascular: Reports: No Symptoms Gastrointestinal: Reports: No Symptoms Genitourinary: Reports: No Symptoms Musculoskeletal: Reports: No Symptoms Skin: Reports: No Symptoms Neurological: Reports: No Symptoms - Patient Data Vitals - Most Recent: Last Vital Signs Temp 37.2 C 04/15/19 06:00 Pulse 84 04/15/19 06:00 Resp 16 04/15/19 06:00 BP 146/79 H 04/15/19 06:00 Pulse Ox 93 L 04/15/19 06:00 Weight - Most Recent: 53.774 kg Med Orders - Current: Current Medications Albuterol (Ventolin Hfa) 0 gm INH Q4H PRN PRN Reason: Shortness of Breath Amlodipine Besylate (Norvasc) 2.5 mg PO DAILY [facility] Last Admin: 04/14/19 08:41 Dose: 2.5 mg Loperamide HCl (Imodium) 2 mg PO Q4HR PRN PRN Reason: Diarrhea Last Admin: 04/12/19 08:58 Dose: 2 mg Sodium Chloride (Saline Flush) 10 ml FLUSH ASDIRECTED PRN PRN Reason: Keep Vein Open Discontinued Medications Hydrochlorothiazide (Hydrochlorothiazide) 12.5 mg PO DAILY [facility] Last Admin: 04/12/19 08:58 Dose: 12.5 mg Sodium Chloride (Normal Saline) 1,000 mls @ 150 mls/hr IV ONETIME ONE Stop: 04/13/19 15:09 Last Admin: 04/13/19 08:03 Dose: 150 mls/hr Lisinopril (Prinivil) 10 mg PO DAILY [facility] Last Admin: 04/12/19 08:58 Dose: 10 mg Non-Formulary Medication (Loperamide Hcl [Imodium A-D]) 2 mg PO DAILY PRN PRN Reason: Diarrhea - Exam General: Reports: Alert, Cooperative, No Acute Distress HEENT: Reports: Mucous Membr. Moist/[employer] Neck: Reports: Supple, Trachea Midline, No Thyromegaly. Denies: Lymphadenopathy Lungs: Reports: Clear to Auscultation, Normal Respiratory Effort Cardiovascular: Reports: Regular Rate, Regular Rhythm, No Murmurs GI/Abdominal Exam: Normal Bowel Sounds, Soft, Non-Tender, No Organomegaly, No Distention, No Mass Extremities: Non-Tender, No Pedal Edema, Normal Capillary Refill Skin: Reports: Warm, Dry, Intact
[2019-04-15] MEDS: amLODIPine 2.5 MG Tab PO SCH (08:12)
[2019-04-15] MEDS: Loperamide 2 MG Cap PO PRN (08:13)
== END 2019-04-15 10:30 | disposition home or self-care (01) | DRG 684 ==
LOC: VM.MS 13:37
PROVIDERS: ADMIT Nurse Practitioner; ATTEND Family Medicine
DX: N17.9 Acute kidney failure, unspecified (principal); D64.9 Anemia, unspecified; E83.52 Hypercalcemia; F32.89 Other specified depressive episodes; D69.6 Thrombocytopenia, unspecified; I10 Essential (primary) hypertension; Z79.899 Other long term (current) drug therapy; Z91.09 Other allergy status, other than to drugs and biological substances
CPT/HCPCS: 36415; 80048; 97110-GO; A9270-GY; J7030